=== PATIENT | female | born 1975 | race Caucasian/White ===

== ENCOUNTER 2020-08-12 18:26 | Inpatient (IN) | payer OTHER ==
[~2020-08-12] VITALS: Ht 175.3 cm; Wt 71.7 kg
--- NOTE | 2020-08-12 18:59 | NUR ---
SE RECIBE PACIENTE ALERTA, ORIENTADA X 3 ESFERAS REFIERE TENER [facility] [address] PEREZ, REFIERE TENER HBG 7.3. SE UBICA EN AREA DE OBSERVACION.
--- NOTE | 2020-08-12 21:02 | NUR ---
SE EJECUTA ORDEN MEDICA EN REVELES TOTLAIDAD Y PACIENTER QUEDA PENDIENTE DE RESULTADOS DE LABORATORIO. SE REALIZO HOJA DE REQUISICION DE TIPO Y VLAD PARA 2 UNIDADES HOLD. AL MOMENTO LA MISMA CONSTA CON CONSENTIMIENTO FIRMADO. SE MANTIENE A PACIENTE EN OBSERVACION POR CAMBIOS EN CONDICION Y CONTINUIDAD DE RADHA.
--- NOTE | 2020-08-12 21:44 | NUR ---
9:35PM PACIENTE PRESENTA VALOR DE HEMOGLOBINA EN 7.0. DR. BEARD ORDENA ACTIVAR LAS 2 UNIDADES DE [place] PRBC PARA TRANFUNDIR. SE MODIFICA HOJA YA PREVIAMENTE ENVIADA A LABORATORIO A LA CUAL SE LE ACTIVAN LAS 2 UNIDADES ORDENADAS EN HOLD. SE ORIENTA A PACIENTE SOBRE LAS ORDENES MEDICAS Y SE REALIZA LLAMA A [facility] PARA NOTIFICAR LA MODIFICACION QUE SE REALIZO EN HOJA KRISTA DE REQUISICION DE [place]. SE LOGRO COMUNICACION CON SR. MCKEE AL CUAL SE NOTIFICA LA ACTIVACION DE LAS 2 UNIDADES PARA TRANFUNDIR.
--- NOTE | 2020-08-12 23:50 | NUR ---
PACIENTE ALERTA Y ORIENTADA X3. EM JANEL CON BARANDAS ELEVADAS. PACIENTE RECIBIENDO 0.9 NSS DE 1,000ML BAJANDO A 250ML/HR EN MANO IZQUIERDA. PACIENTE CON H/L PATENTE Y JULISA DE EDEMA Y ERITEMA EN MANO DERECHA. PENDIENTE TRANSFUNDIR 2 UNIDADES DE PRBC'S AUN NO DISPONIBLE. CONSENTIMIENTO DE TRANSFUSION DE [place] FIRMADO POR PACIENTE. SE MANTIENE BAJO OBSERVACION POR CAMBIOS SIGNIFICATIVOS.
--- NOTE | 2020-08-13 00:30 | NUR ---
SE LLAMO A LABORATORIO PARA VERIFICAR SI LAS UNIDADES REQUIZADAS ESTABAN DISPONIBLE Y MIS. DIEZ REFIRIO QUE AUN NO.
--- NOTE | 2020-08-13 05:10 | NUR ---
0430 SE BUSCA EN LABORATORIO PRIMERA UNIDAD DE PRBC ORDENADA POR 0440 PACIENTE ALERTA Y ORIENTADA X3. SE ORIENTA SOBRE PROCESO DE TRANSFUSION Y REFIRIO ENTENDER. SE COMIENZA PRIMERA UNIDAD DE PRBC A TRANSFUNDIR. SE MANTIENE BAJO OBSERVACION POR CAMBIOS SIGNIFICATIVOS.
--- NOTE | 2020-08-13 07:50 | NUR ---
SE RECIBE PTE EN EL AREA DE OBSERVACION EN JANEL CON BARRANDAS ELEVADA Y TIMBRE ACCESIBLE PTE ALERTA Y CONCIENTE POR 3, SE OBSERVA BAJANDO LA PRIMERA UNIDAD DE [place], PTE EN ESEPRA DEL DR BEARD
--- NOTE | 2020-08-13 10:29 | NUR ---
08:48AM SE CULMINA PRIMERA UNIDAD DE PRBC A LAS 8:33AM, AL MOMENTO PTE JULISA DE SIGNOS O SINTOMAS DE REACCION ADVERSA. SE MIDEN S/V POST TRANSFUSION Y SE DOCUMENTAN.
== END 2020-08-14 15:48 | disposition home or self-care (01) | DRG 812 ==
LOC: ER 18:26 → OB/GYN 08-13 08:15
PROVIDERS: ADMIT Obstetrics & Gynecology; ATTEND Obstetrics & Gynecology
PROC: 30233N1 Transfusion of Nonautologous Red Blood Cells into Peripheral Vein, Percutaneous Approach (ICD-10-PCS; principal; 2020-08-13)
DX: D64.89 Other specified anemias (principal); N92.1 Excessive and frequent menstruation with irregular cycle

== ENCOUNTER 2020-09-22 09:00 | Inpatient (IN) | payer OTHER ==
[~2020-09-22] VITALS: Ht 175.3 cm; Wt 71.7 kg
[2020-10-02] MEDS ORDERED: IBU600 MG PO (13:21)
== END 2020-10-02 14:02 | disposition home or self-care (01) | DRG 743 ==
LOC: EDSTATUS 09:00 → ADM 09:00 → SURH 09:00 → O/R 09-29 06:15 → OB/GYN 09-29 06:15 → SURH 09-29 09:00 → OB/GYN 09-29 10:39 → SURH 09-29 13:15 → OB/GYN 10-02 14:02
PROVIDERS: ADMIT Obstetrics & Gynecology; ATTEND Obstetrics & Gynecology
PROC: 0DNU0ZZ Release Omentum, Open Approach (ICD-10-PCS; 2020-09-29)
PROC: 0TJB8ZZ Inspection of Bladder, Via Natural or Artificial Opening Endoscopic (ICD-10-PCS; 2020-09-29)
PROC: 0UT90ZZ Resection of Uterus, Open Approach (ICD-10-PCS; principal; 2020-09-29 13:15)
DX: D25.1 Intramural leiomyoma of uterus (principal); D64.9 Anemia, unspecified; N73.6 Female pelvic peritoneal adhesions (postinfective)